=== PATIENT | female | born 1970 | race Caucasian/White ===

== ENCOUNTER → 2016-05-10 | Outpatient (CLI) | payer OTHER | LOC: FIMAGING 12:39 | PROVIDERS: ATTEND Allergy & Immunology Allergy | DX: R91.1 Solitary pulmonary nodule (principal) ==

== ENCOUNTER → 2016-05-11 | Outpatient (CLI) | payer OTHER | LOC: FIMAGING 13:42 | PROVIDERS: ATTEND Allergy & Immunology Allergy | DX: S22.31XA Fracture of one rib, right side, initial encounter for closed fracture (principal); J40 Bronchitis, not specified as acute or chronic; X58.XXXA Exposure to other specified factors, initial encounter ==

== ENCOUNTER → 2016-06-03 | Outpatient (CLI) | payer OTHER | LOC: GIMAGING 11:32 | PROVIDERS: ATTEND Nurse Practitioner Family | DX: J40 Bronchitis, not specified as acute or chronic (principal) | CPT/HCPCS: 71020-PO ==

== ENCOUNTER 2016-06-09 15:20 | Observation (INO) | payer OTHER ==
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
[2016-06-09 16:35] LABS: % IMMATURE GRANULYOCYTES 0.3 % (0.0-1.1); ABSOLUTE IMMATURE GRANULOCYTES 0.01 10^3/uL (0.00-0.10); ADD DIFF? NO; ADD MORPH? YES; ADD SCAN? NO; ATYPICAL LYMPHOCYTE FLAG 20 (0-99); HEMATOCRIT 23.4 % (38.0-47.0); LEFT SHIFT FLG 0 (0-99); LIPEMIA HEMOLYSIS FLAG 70 (0-99); MEAN CELL HEMOGLOBIN 14.9 pg (27.9-34.1); PLATELET CLUMPS FLAG 40 (0-99); PLATELET COUNT 373 10^3/uL (150-400); RED BLOOD CELL COUNT 4.22 10^6/uL (4.18-5.33)
[2016-06-09 16:38] LABS: FRAGMENT RBC FLAG 300 (0-99); HEMOGLOBIN 6.3 g/dL (12.6-16.3); MEAN CELL HEMOGLOBIN CONCENTR. 26.9 g/dL (32.4-36.7); MEAN CELL VOLUME 55.5 fL (81.5-99.8); RED CELL DISTRIBUTION WIDTH 20.5 % (11.5-15.2)
[2016-06-09 16:44] LABS: ANION GAP 11 mEq/L (8-16); CALCIUM 9.5 mg/dL (8.5-10.4); CARBON DIOXIDE 22 mEq/l (22-31); CHLORIDE 105 mEq/L (97-110); CREATININE 0.6 mg/dL (0.6-1.0); GLOMERULAR FILTRATION RATE > 60; GLUCOSE 95 mg/dL (70-100); POTASSIUM 4.2 mEq/L (3.5-5.2); SODIUM 138 mEq/L (134-144)
[2016-06-09 16:53] LABS: % SATURATION 4 % (20-55); TOTAL IRON BINDING CAPACITY 361 ug/dL (260-490)
[2016-06-09 16:58] LABS: TROPONIN I < 0.012 ng/mL (0-0.034)
[2016-06-09 17:07] LABS: HYPOCHROMIA 3+; MACROCYTES 1+; MICROCYTES 3+; PLATELET ESTIMATE ADEQUATE (ADEQ); POLYCHROMASIA 2+
[2016-06-09 17:08] LABS: ACANTHOCYTES 1+; ELLIPTOCYTES 1+; LARGE PLATELETS PRESENT; SCHISTOCYTES 2+
[2016-06-09] MEDS ORDERED: GOLYTELY 4000 ML BTL PO ONE (20:00)
[2016-06-09] MEDS ORDERED: ACETAMINOPHEN 325 MG TAB PO PRN (23:34)
[2016-06-09] MEDS ORDERED: ONDANSETRON DISINTEGRATING 4 MG TAB PO PRN (23:34)
[2016-06-09] MEDS ORDERED: ONDANSETRON 4 MG/2 ML VIAL IVP PRN (23:34)
--- NOTE | 2016-06-09 23:37 | PDGENHP ---
History and Physical - Chief Complaint sent to ED by PMD for anemia - History of Present Illness Patient is a 45-year-old female with no significant past medical history who was sent to the ED for abnormal lab values. For the past 8 months patient has undergone an extensive workup for a chronic, productive cough of unclear etiology. Patient reports undergoing PFTs, CT chest, an allergen testing. Workup has revealed possible her pulmonary hypertension. Patient states over the past 2 months she has been noticing increasing dyspnea on exertion with her regular exercise regimen, and more recently dyspnea with walking 1-2 flights of stairs. This is a change from her baseline. In addition to her respiratory symptoms, patient has also been experiencing bright red blood per rectum for the past several months. Bleeding was being attributed to external/internal hemorrhoids, however patient reports bright red blood as well as dark maroon clots being passed intermittently. She denies any melena. On 06/05 patient underwent outpatient blood work that revealed significant anemia, for which she was sent to the ED today. Of note, patient denies any obvious dizziness, lightheadedness, chest pain, palpitations. She also denies any fevers, chills, abdominal pain, nausea, vomiting or diarrhea. Her outpatient labs also revealed a positive [place] screening. Patient does report intermittent headaches, for which she takes Advil frequently. She has never had a colonoscopy or endoscopy in her life On to the ED patient was afebrile and hemodynamically stable. Labs revealed persistent anemia, hemoglobin 6.3. BMP was within normal limits. GI was consulted and patient was admitted to the hospital service for further management. History Information - Allergies/Home Medication List Allergies/Adverse Reactions: hydromorphone HCl [From Dilaudid] Allergy (Intermediate, Verified 06/09/16 15:34 ) SEVERE HEADACHE meperidine HCl [From Demerol] Allergy (Intermediate, Verified 06/09/16 15:34) SEVERE HEADACHE Penicillins Allergy (Mild, Verified 06/09/16 15:34) Rash Home Medications: Herbals/Supplements -Info Only 1 ea PO DAILY 06/09/16 [Last Taken Unknown] I have personally reviewed and updated: family history, medical history, social history, surgical history - Past Medical History no pertinent PMH - Surgical History Additional surgical history: Total abdominal hysterectomy. Myomectomy. Lasic eye surgery - Family History Positive for: CAD - Social History Smoking Status: Never smoked Alcohol Use: Occasionally Drug Use: None Additional social history: Patient works in the [employer] in history, lives alone. Review of Systems ROS: 10pt was reviewed & negative except for what was stated in HPI & below Physical Exam Temp Pulse Resp BP Pulse Ox 36.8 C 68 14 126/68 H 99 06/09/16 20:00 06/09/16 20:00 06/09/16 20:00 06/09/16 20:00 06/09/16 20:00 O2 (L/minute) 99 Constitutional: no apparent distress, appears nourished, not in pain Eyes: PERRL, anicteric sclera, EOMI, pale conjunctiva Ears, Nose, Mouth, Throat: moist mucous membranes, hearing normal, ears appear normal, no oral mucosal ulcers Cardiovascular: regular rate and rhythym, no murmur, rub, or gallop, pulses symmetric bilaterally, No JVD, No edema Peripheral Pulses: 2+: dorsalis-pedis (R), dorsalis-pedis (L) Respiratory: no respiratory distress, no rales or rhonchi, clear to auscultation Gastrointestinal: normoactive bowel sounds, soft, non-tender abdomen, no palpable masses, No tenderness, No hepatosplenomegally, No guarding, No rebound , No distension Genitourinary: no bladder fullness, no bladder tenderness Skin: warm, normal color, no rashes or abrasions, no fluctuance, no induration, No mottled Musculoskeletal: full muscle strength, no muscle tenderness, normal joint ROM, no joint effusions Neurologic: AAOx3, sensation intact bilaterally, CN II-XII Intact, No weakness, No numbness, No facial droop Psychiatric: interacting appropriately, not anxious, not encephalopathic, thought process linear Lab Data & Imaging Review 06/09/16 16:20 06/09/16 16:20 WBC 3.31 10^3/uL (3.80-9.50) L 06/09/16 16:20 RBC 4.22 10^6/uL (4.18-5.33) 06/09/16 16:20 Hgb 6.3 g/dL (12.6-16.3) L 06/09/16 16:20 Hct 23.4 % (38.0-47.0) L 06/09/16 16:20 MCV 55.5 fL (81.5-99.8) L 06/09/16 16:20 MCH 14.9 pg (27.9-34.1) L 06/09/16 16:20 MCHC 26.9 g/dL (32.4-36.7) L 06/09/16 16:20 RDW 20.5 % (11.5-15.2) H 06/09/16 16:20 Plt Count 373 10^3/uL (150-400) 06/09/16 16:20 MPV TNP 06/09/16 16:20 Neut % (Auto) 43.8 % (39.3-74.2) 06/09/16 16:20 Lymph % (Auto) 41.4 % (15.0-45.0) 06/09/16 16:20 [place] % (Auto) 11.8 % (4.5-13.0) 06/09/16 16:20 Eos % (Auto) 2.1 % (0.6-7.6) 06/09/16 16:20 Baso % (Auto) 0.6 % (0.3-1.7) 06/09/16 16:20 Nucleat RBC Rel Count 0.0 % (0.0-0.2) 06/09/16 16:20 Absolute Neuts (auto) 1.45 10^3/uL (1.70-6.50) L 06/09/16 16:20 Absolute Lymphs (auto) 1.37 10^3/uL (1.00-3.00) 06/09/16 16:20 Absolute Monos (auto) 0.39 10^3/uL (0.30-0.80) 06/09/16 16:20 Absolute Eos (auto) 0.07 10^3/uL (0.03-0.40) 06/09/16 16:20 Absolute Basos (auto) 0.02 10^3/uL (0.02-0.10) 06/09/16 16:20 Absolute Nucleated RBC 0.00 10^3/uL (0-0.01) 06/09/16 16:20 Immature Gran % 0.3 % (0.0-1.1) 06/09/16 16:20 Immature Gran # 0.01 10^3/uL (0.00-0.10) 06/09/16 16:20 Platelet Estimate ADEQUATE (ADEQ) 06/09/16 16:20 Large Platelets PRESENT H 06/09/16 16:20 Polychromasia 2+ H 06/09/16 16:20 Hypochromasia 3+ H 06/09/16 16:20 Microcytic Cells 3+ H 06/09/16 16:20 Oval Macrocytes 1+ H 06/09/16 16:20 Elliptocytes 1+ H 06/09/16 16:20 Acanthocytes (Spur) 1+ H 06/09/16 16:20 Schistocytes 2+ H 06/09/16 16:20 Absolute Retic 0.056 10^6/uL (0.050-0.117) 06/09/16 16:20 Percent Retic 1.33 % (0.98-2.67) 06/09/16 16:20 Corrected Retic Count 0.7 % (0.6-2.6) 06/09/16 16:20 Sodium 138 mEq/L (134-144) 06/09/16 16:20 Potassium 4.2 mEq/L (3.5-5.2) 06/09/16 16:20 Chloride 105 mEq/L (97-110) 06/09/16 16:20 Carbon Dioxide 22 mEq/l (22-31) 06/09/16 16:20 Anion Gap 11 mEq/L (8-16) 06/09/16 16:20 BUN 14 mg/dL (7-23) 06/09/16 16:20 Creatinine 0.6 mg/dL (0.6-1.0) 06/09/16 16:20 Estimated GFR > 60 06/09/16 16:20 Glucose 95 mg/dL (70-100) 06/09/16 16:20 Calcium 9.5 mg/dL (8.5-10.4) 06/09/16 16:20 Iron 16.0 mcg/dL (37-170) L 06/09/16 16:20 TIBC 361 ug/dL (260-490) 06/09/16 16:20 Iron Saturation 4 % (20-55) L 06/09/16 16:20 Troponin I < 0.012 ng/mL (0-0.034) 06/09/16 16:20 Stool Occult Bld Scrn POSITIVE (NEGATIVE) H 06/09/16 Unknown Patient ABO/Rh O POSITIVE 06/09/16 17:31 Antibody Screen NEGATIVE 06/09/16 17:31 Crossmatch IS Only See Detail 06/09/16 17:31 Assessment & Plan Assessment: Patient is a 45-year-old female with no significant past medical history who presents to the ED with abnormal outpatient labs significant for anemia. Patient reports a history concerning for lower GI bleeding. Plan: # acute blood loss anemia Microcytic anemia appears consistent with acute blood loss from lower GI tract ( internal hemorrhoids vs diverticula). Patient does report a significant NSAID use, however, presentation does not appear consistent with UGIB. She remains hemodynamically stable, not tachycardic. Will transfuse 1 unit PRBC now. GI has evaluated patient and plan for colonoscopy in AM. - NPO - colonoscopy prep - transfuse PRBC and trend CBC - f/u GI findings/recs # chronic cough, increasing dyspnea on exertion. Patient reports chronic cough for which she has undergone an extensive outpatient work up. Per the patient, the leading diagnosis appears to be pulmonary hypertension. Will check TTE to assess severity of this while patient is here, as it is likely contributing to her symptoms of generalized fatigue and dyspnea (in addition to the anemia). # dispo: admit to observation status for stable lower GI bleed w/u # gen: Full code
[2016-06-10 06:28] LABS: HEMATOCRIT 24.8 % (38.0-47.0)
[2016-06-10 08:23] LABS: % IMMATURE GRANULYOCYTES 0.4 % (0.0-1.1); ABSOLUTE IMMATURE GRANULOCYTES 0.01 10^3/uL (0.00-0.10); ADD DIFF? NO; ADD MORPH? YES; ADD SCAN? NO; ATYPICAL LYMPHOCYTE FLAG 20 (0-99); FRAGMENT RBC FLAG 80 (0-99); HEMATOCRIT 26.5 % (38.0-47.0); HEMOGLOBIN 7.4 g/dL (12.6-16.3); LEFT SHIFT FLG 0 (0-99); LIPEMIA HEMOLYSIS FLAG 70 (0-99); MEAN CELL HEMOGLOBIN 16.6 pg (27.9-34.1); MEAN PLATELET VOLUME 10.1 fL (8.7-11.7); PLATELET CLUMPS FLAG 50 (0-99); PLATELET COUNT 353 10^3/uL (150-400); RED BLOOD CELL COUNT 4.46 10^6/uL (4.18-5.33)
[2016-06-10 08:24] LABS: MEAN CELL HEMOGLOBIN CONCENTR. 27.9 g/dL (32.4-36.7); MEAN CELL VOLUME 59.4 fL (81.5-99.8); RED CELL DISTRIBUTION WIDTH 23.9 % (11.5-15.2)
[2016-06-10 08:35] LABS: APTT 29.3 SEC (23.0-38.0); INR 1.05 (0.83-1.16); PROTIME(PATIENT) 13.6 SEC (12.0-15.0)
[2016-06-10 08:44] VITALS: RESP 18
[2016-06-10 08:56] LABS: ALANINE AMINOTRANSFERASE 30 IU/L (9-52); ALBUMIN 4.3 g/dL (3.5-5.0); ALKALINE PHOSPHATASE 36 IU/L (38-126); ANION GAP 11 mEq/L (8-16); ASPARTATE AMINOTRANSFERASE 19 IU/L (14-46); BILIRUBIN,TOTAL 0.8 mg/dL (0.1-1.4); CALCIUM 9.5 mg/dL (8.5-10.4); CARBON DIOXIDE 21 mEq/l (22-31); CHLORIDE 108 mEq/L (97-110); CREATININE 0.6 mg/dL (0.6-1.0); GLOMERULAR FILTRATION RATE > 60; GLUCOSE 92 mg/dL (70-100); POTASSIUM 4.8 mEq/L (3.5-5.2); SODIUM 140 mEq/L (134-144); TOTAL PROTEIN 6.7 g/dL (6.3-8.2)
[2016-06-10 09:28] LABS: ELLIPTOCYTES 1+; HYPOCHROMIA 3+; MICROCYTES 3+; PLATELET ESTIMATE ADEQUATE (ADEQ)
[2016-06-10 09:29] LABS: SCHISTOCYTES 1+
[2016-06-10] MEDS ORDERED: fentaNYL 100 MCG/2 ML INJ ONE (09:29)
[2016-06-10] MEDS ORDERED: MIDAZOLAM 2 MG/2 ML VIAL ONE ×2 (09:29→10:26)
[2016-06-10] MEDS ORDERED: ONDANSETRON 4 MG/2 ML VIAL ONE (09:59)
--- NOTE | 2016-06-10 10:55 | SOAPPROG ---
DENI Progress Note Assessment/Plan: Assessment: Plan: 06/10/16 10:23 GI See dictated consult for details. S/p EGD and colonoscopy. No obvious cause seen. + internal and external hemorrhoids. Etiology? Hemorrhoidal versus small bowel versus other? Recommend to consider treatment for hemorrhoids and monitor H/H etc. Will restart diet. Objective: Vital Signs Temp Pulse Resp BP Pulse Ox 36.6 C 70 18 118/65 97 06/10/16 08:00 06/10/16 08:00 06/10/16 08:00 06/10/16 08:00 06/10/16 08:00 Laboratory Results 06/10/16 08:11 06/10/16 08:11 PT 13.6 SEC (12.0-15.0) 06/10/16 08:11 INR 1.05 (0.83-1.16) 06/10/16 08:11 ICD10 Worksheet Patient Problems: Problems Problem Status Onset Lower GI bleed Acute Anemia Acute Weakness Acute
--- NOTE | 2016-06-10 11:10 | ECHO ---
[id number] + + [address] : : [place] [address] : : [phone] + + Adult Echocardiographic Report + -------+ :Name: MICHELLE MISHRA JStudy Date: 06/10/2016 08:15 AM BP: 118/65 mmH g : : Hospital Admission Number: [id number] Locati on: 144: :: 1970 Gender: Female Height: 65 in : :Age: 45 yrs Race: WH Weight: 152 lb : :Reason For Study: incr DODD : : BSA: 1.8 meter s2 : :History: reported pulmonary hypertension : + -------+ MMode/2D Measurements \T\ Calculations IVSd: 1.1 cm RVDd: 2.7 cm FS: 29.8 % Ao root diam: LVPWd: 0.75 cm LVIDd: 3.7 cm EDV(Teich): 2.9 cm LVIDs: 2.6 cm 58.8 ml LA dimension: ESV(Teich): 3.0 cm 24.8 ml EF(Teich): 57.8 % LVLd ap4: 9.4 cm SV(MOD-sp4): EDV(MOD-sp4): 97.0 ml 124.0 ml LVLs ap4: 6.8 cm ESV(MOD-sp4): 27.0 ml EF(MOD-sp4): 78.2 % Normal Measurement Values: + + :LVIDd (3.5-5.7cm) IVSd (0.6-1.1cm) LVPWd (0.6-1.1cm) Aortic Root (2.0-3.7cm)Left Atrium (1.5-4.0cm): :LV Vol(d) (76-115ml) LV Vol(s) (29-48ml) Ejec Fraction (50-65%)PV Mikal (0.6- 1.2m/s) TV Mikal (0.4-1.0m/s) : :MV E Mikal (0.8-1.0m/s)MV A Mikal (0.3-1.0m/s)LVOT Mikal (0.7-1.2m/s) Asc Ao Mikal ( 0.9-1.8m/s) : + + Doppler Measurements \T\ Calculations MV E max mikal: Ao V2 max: LV V1 max: PA V2 max: 95.8 cm/sec 159.3 cm/sec 122.9 cm/sec 85.5 cm/sec MV A max mikal: Ao max PG: LV V1 max PG: PA max P.1 cm/sec 10.1 mmHg 6.0 mmHg 2.9 mmHg MV E/A: 1.3 MV dec time: 0.32 sec Left Ventricle The left ventricle is normal in size and function. There is normal left ventricular wall thickness. Mild proximal septal thickening without LVOT obstruction. Ejection Fraction = 65%. No regional wall motion abnormalities noted. Right Ventricle The right ventricle is normal in size and function. Atria The Left Atrial Volume is 38 ml/m2. The left atrium is mildly dilated. Right atrial size is normal. Mitral Valve The mitral valve leaflets appear thickened, but open well. There is mild mitral valve prolapse. There is no mitral valve stenosis. There is mild mitral regurgitation. Tricuspid Valve The tricuspid valve is normal in structure and function. There is no tricuspid stenosis. No tricuspid regurgitation. Unable to estimate right heart pressures due to inadequate TR jet. Aortic Valve The aortic valve is trileaflet. There is no aortic stenosis. Trace to mild aortic regurgitation. Pulmonic Valve The pulmonic valve is not well visualized. Great Vessels The aortic root is normal size. Pericardium/Pleural There is no pericardial effusion. Conclusion A two-dimensional transthoracic echocardiogram with M-mode and Doppler was performed. The left ventricle is normal in size and function. Ejection Fraction = 65%. The Left Atrial Volume is 38 ml/m2. The left atrium is mildly dilated. There is mild mitral valve prolapse. There is mild mitral regurgitation. Unable to estimate right heart pressures due to inadequate TR jet. Trace to mild aortic regurgitation. Final Reading Physician: Ancelmo Lee signed on 06/10/2016 11:09 AM Performed By: Lois Monae
--- NOTE | 2016-06-10 11:31 | GPN ---
[f rep st] PROCEDURE NOTE DATE OF PROCEDURE: 06/10/2016 PROCEDURE: Esophagogastroduodenoscopy with biopsy. INDICATION: Ansley is a 45-year-old female with significant NSAID use who presents for evaluation of iron-deficiency anemia. CONSENT: Risks, benefits, and alternatives of the procedure were discussed in great detail with the patient. Risks of infection, bleeding, perforation, and sedation were discussed. All questions answered. Informed consent was obtained. MEDICATIONS: Fentanyl 150mcg IV push, Versed 6 mg IV push. Zofran 8 mg IV push. . Moderate sedation was administered by the endoscopy nurse and supervised by the endoscopist. The following parameters were monitored: oxygen saturation, heart rate, blood pressure, and response to care. ESTIMATED BLOOD LOSS: Insignificant. ESOPHAGOGASTRODUODENOSCOPY EXAMINATION: The Olympus upper endoscope was introduced via the mouth and advanced to the esophagus. The proximal and mid esophagus were normal in appearance. An irregular Z-line was noted, and biopsies were taken. The stomach was entered and closely examined, including retroflexed view of the angularis, cardia and fundus. The patient was noted to have a small hiatal hernia. The mucosa in the antrum and body was erythematous in a patchy distribution and biopsies were taken. The duodenal bulb and second portion of the duodenum were normal in appearance. Biopsies were taken to rule out celiac sprue. IMPRESSION/RECOMMENDATIONS: 1. No cause of iron deficiency anemia seen. 2. Await biopsy results. 3. Proceed with colonoscopy. /[id number]/MODL MTDD
--- NOTE | 2016-06-10 11:36 | GPN ---
[f rep st] PROCEDURE NOTE DATE OF PROCEDURE: 06/10/2016 PROCEDURE: Colonoscopy. INDICATION: The patient is a 45-year-old female who presents for evaluation of iron-deficiency anemia as well as bright red blood per rectum. CONSENT: Risks, benefits, and alternatives of the procedure were discussed in great detail with the patient. Risks of infection, bleeding, perforation, and sedation were discussed. All questions answered and informed consent was obtained. MEDICATIONS: Fentanyl 175 mcg IV push, Versed 8 mg IV push, Zofran 8 mg IV push (these are total documented dosages for an EGD and colonoscopy). Moderate sedation was administered by the endoscopy nurse and supervised by the endoscopist. The following parameters were monitored: oxygen saturation, heart rate, blood pressure, and response to care. Total physician intraservice time was 46 minutes ESTIMATED BLOOD LOSS: None. COLONOSCOPIC EVALUATION: A rectal exam was done and the patient noted to have both internal and external hemorrhoids. The scope was introduced into the rectum and advanced to the cecum where the ileocecal valve and appendiceal orifice were seen. The small bowel was intubated. No blood was seen throughout the exam. The quality of prep was good. The colonic mucosa was carefully examined on both insertion and withdrawal of the scope. No mass, lesion, polyps or blood were noted throughout the colon. Retroflexion was performed and medium sized internal hemorrhoids were noted. IMPRESSION/RECOMMENDATIONS: 1. Suspected bright red blood per rectum is hemorrhoidal. 2. Rare for hemorrhoidal bleed causing this anemia, but she does have blood in her stools on an almost daily basis. Would recommend treatment of her hemorrhoids and monitor an H and H. If no increase in hemoglobin, would consider capsule endoscopy. Will need outpatient followup for her iron deficiency anemia. 3. Continue previous medications. 4. Ok to restart diet. 5. Needs iron supplementation. /[id number]/MODL MTDD
[2016-06-10 12:02] VITALS: TEMP 98.3
[2016-06-10] MEDS ORDERED: SODIUM FERRIC GLUCONAT/SUCROSE 125 MG in NS 100 ML IV ONE (12:29)
--- NOTE | 2016-06-10 13:00 | GCON ---
[f rep st] CONSULTATION DATE OF CONSULTATION: 06/10/2016 CONSULTING PHYSICIAN: Sabiha Duran MD. REASON FOR CONSULTATION: Iron deficiency anemia. CHIEF COMPLAINT: Shortness of breath, bright red blood per rectum. HISTORY OF PRESENT ILLNESS: Ansley is a 45-year-old female with a history of significant NSAID use, chronic cough who presents to [facility] with increasing shortness of breath. In the emergency room, she was found to have a hemoglobin level of 6.3. For approximately the last 8 months, the patient has had a productive cough of unknown etiology. She has undergone a significant workup, including CT scans, pulmonary function tests as well as allergy testing. Over the last several weeks, she has had increasing dyspnea, especially on exercise. The patient has had significant bright red blood per rectum for the last 4-5 months. The patient has had intermittent bright red blood per rectum on wiping as well as in the stool. This occurs intermittently but has occurred up to a week at one time. She denies any change in her bowel habits or significant abdominal pain. She denies any exacerbating or alleviating factors. The patient does take nonsteroidal anti-inflammatories on an almost daily basis. She takes approximately 2 Advil for her headaches as well as Tylenol PM for sleep. She has never had a prior upper endoscopy or colonoscopy. She denies a family history of colon cancer. I am being asked by Dr. Duran to see Ansley in consultation regarding her iron deficiency anemia. PAST MEDICAL HISTORY: Unremarkable. PAST SURGICAL HISTORY: Hysterectomy and LASIK eye surgery. MEDICATIONS: Herbal medications. ALLERGIES: Hydromorphone, meperidine, penicillin. SOCIAL HISTORY: No significant tobacco use. Positive alcohol. FAMILY HISTORY: No history of colon cancer. REVIEW OF SYSTEMS: A 12-point comprehensive review of systems was asked. Her pertinent positives and negatives as per HPI. PHYSICAL EXAM: VITAL SIGNS: Blood pressure 118/65, pulse is 70, respiration 18 , temperature 36.8. GENERAL: Awake, alert, and oriented x3. HEENT: Anicteric. Moist mucosa. NECK: No JVD. CARDIOVASCULAR: Regular rate and rhythm. Positive S1, S2. No murmurs or gallops appreciated. LUNGS: Clear to auscultation bilaterally, without wheezes, rales, or rhonchi. ABDOMEN: Soft, nontender, nondistended. Positive bowel sounds. No guarding. No rebound. EXTREMITIES: No clubbing, cyanosis or edema. NEUROLOGIC: 2 through 12 grossly intact. PSYCH: Normal affect. MUSCULOSKELETAL: No joint effusions or abnormalities. SKIN: No rash. LABORATORY DATA: Blood work: WBC is 2.55, hemoglobin 7.4, hematocrit 26.5, platelets 353. INR 1.05. Sodium 140, potassium 4.8, chloride 108, bicarb 21, BUN 10, creatinine 0.6, AST 19, ALT 63, alk phos 336. ASSESSMENT AND PLAN: Iron-deficiency anemia -- bright red blood per rectum. Significant anemia which we usually do not see in just hemorrhoidal bleed. Has heavy NSAID use. Would recommend proceeding with upper endoscopy and colonoscopy to delineate cause of her symptoms. The risks, benefits, and alternatives of the procedure were described in great detail to the patient. The risk of infection, bleeding, perforation, and sedation were discussed. All questions answered. Informed consent obtained. Would recommend to hold her nonsteroidal anti-inflammatory prior to this time. Thank you very much for this consultation! /[id number]/MODL MTDD
[2016-06-10 14:42] VITALS: BP 98/57; PULSE 72; O2SAT 95
--- NOTE | 2016-06-10 14:43 | HOSPPROG ---
Hospitalist Progress Note Assessment/Plan: 45 yo F w iron deficiency anemia no source found on endoscopy IV iron see dc summary Subjective: scope w no source of bleeding other than internal/external hemorrhoids Objective: Vital Signs Temp Pulse Resp BP Pulse Ox 36.8 C 69 18 117/55 L 97 06/10/16 11:45 06/10/16 11:45 06/10/16 11:45 06/10/16 11:45 06/10/16 11:45 Laboratory Results 06/10/16 08:11 06/10/16 08:11 PT 13.6 SEC (12.0-15.0) 06/10/16 08:11 INR 1.05 (0.83-1.16) 06/10/16 08:11 - Physical Exam Constitutional: no apparent distress, appears nourished, not in pain Eyes: PERRL, anicteric sclera Ears, Nose, Mouth, Throat: moist mucous membranes, hearing normal, ears appear normal Cardiovascular: regular rate and rhythym, no murmur, rub, or gallop Respiratory: no respiratory distress, no rales or rhonchi Gastrointestinal: normoactive bowel sounds, soft, non-tender abdomen Genitourinary: No junior in urethra Skin: warm, normal color Musculoskeletal: full muscle strength, no muscle tenderness Neurologic: AAOx3 Psychiatric: interacting appropriately ICD10 Worksheet Patient Problems: Problems Problem Status Onset Anemia Acute Lower GI bleed Acute Weakness Acute
--- NOTE | 2016-06-10 15:17 | GDS ---
[f rep st] DISCHARGE SUMMARY DISCHARGE DIAGNOSES: 1. Symptomatic iron deficiency anemia. 2. External hemorrhoids. CONSULTS: GI. PROCEDURES: 1. Upper endoscopy showing no evidence, no source of blood loss. 2. Colonoscopy showing medium-sized internal hemorrhoids. The patient had no signs of active bleeding here. She had 1 unit of packed red cells. Her hemoglobin went from 6.3 to 7.4. She received a dose of IV iron. The patient enjoys red meat and was instructed to eat lean red meat on a regular basis. She was als o instructed to start fiber in the form of Metamucil for her hemorrhoids. She was instructed to follow up with the primary care physician in about 3 weeks and repeat a CBC, a nd if her iron is not improving, then capsule endoscopy would be reasonable. DISCHARGE PRESCRIPTIONS: None. /[id number]/MODL
== END 2016-06-10 18:40 | disposition home or self-care (01) ==
LOC: F1N 18:42
PROVIDERS: ADMIT Internal Medicine; ATTEND Internal Medicine
PROC: 30233N1 Transfusion of Nonautologous Red Blood Cells into Peripheral Vein, Percutaneous Approach (ICD-10-PCS; principal; 2016-06-09)
PROC: 0DJD8ZZ Inspection of Lower Intestinal Tract, Via Natural or Artificial Opening Endoscopic (ICD-10-PCS; 2016-06-09)
PROC: 0DB38ZX Excision of Lower Esophagus, Via Natural or Artificial Opening Endoscopic, Diagnostic (ICD-10-PCS; 2016-06-09)
PROC: 0DB68ZX Excision of Stomach, Via Natural or Artificial Opening Endoscopic, Diagnostic (ICD-10-PCS; 2016-06-09)
PROC: 0DB98ZX Excision of Duodenum, Via Natural or Artificial Opening Endoscopic, Diagnostic (ICD-10-PCS; 2016-06-09)
DX: D50.9 Iron deficiency anemia, unspecified (principal); K64.8 Other hemorrhoids; R05 Cough; K22.9 Disease of esophagus, unspecified; K44.9 Diaphragmatic hernia without obstruction or gangrene; Z79.1 Long term (current) use of non-steroidal anti-inflammatories (NSAID)
CPT/HCPCS: 43239; 45378; 93306; G0378; P9016; 83010-90; J2250; J2405; J2916; J3010

== ENCOUNTER 2016-09-11 13:12 | Day surgery (SDC) | payer OTHER ==
[2016-09-11 13:59] VITALS: PULSE 57
[2016-09-11] MEDS ORDERED: LR 1,000 ML IV ONE (14:03)
[2016-09-11] MEDS ORDERED: MIDAZOLAM 2 MG/2 ML VIAL IVP ONE (15:03)
[2016-09-11] MEDS ORDERED: MIDAZOLAM 2 MG/2 ML VIAL ONE (15:03)
[2016-09-11] MEDS ORDERED: NALOXONE HCL 0.4 MG/ML INJ IVP PRN (15:05)
[2016-09-11] MEDS ORDERED: PROMETHAZINE HCL 25 MG/ML INJ IVP PRN (15:05)
[2016-09-11] MEDS ORDERED: ONDANSETRON 4 MG/2 ML VIAL IVP PRN (15:05)
--- NOTE | 2016-09-11 15:05 | PDANEPAE ---
ANE Past Medical History - Cardiovascular History Hx Hypertension: No Hx Arrhythmias: No Hx Chest Pain: No Hx Coronary Artery / Peripheral Vascular Disease: No Hx CHF / Valvular Disease: No Hx Palpitations: No - Pulmonary History Hx COPD: No Hx Asthma/Reactive Airway Disease: No Hx Recent Upper Respiratory Infection: No Hx Oxygen in Use at Home: No - Neurologic History Hx Cerebrovascular Accident: No Hx Seizures: No Hx Dementia: No - Endocrine History Hx Diabetes: No - Renal History Hx Renal Disorders: No - Liver History Hx Hepatic Disorders: No - Neurological & Psychiatric Hx Hx Neurological and Psychiatric Disorders: No - Cancer History Hx Cancer: No - Congenital Disorder History Hx Congenital Disorders: No - GI History Hx Gastrointestinal Disorders: Yes - Chronic Pain History Chronic Pain: No ANE Review of Systems - Exercise capacity METS (RN): 4 METS - Systems Cardiac: Reports: other (Asymptomatic MV prolapse) Gastrointestinal: Reports: other (GERD, Barretts esophagus) ANE Patient History - Allergies Allergies/Adverse Reactions: hydromorphone HCl [From Dilaudid] Allergy (Intermediate, Verified 06/09/16 15:34 ) SEVERE HEADACHE meperidine HCl [From Demerol] Allergy (Intermediate, Verified 06/09/16 15:34) SEVERE HEADACHE Penicillins Allergy (Mild, Verified 06/09/16 15:34) Rash - Home Medications Home Medications: Iron 09/08/16 [Last Taken 09/08/16 07:00] Magnesium 09/08/16 [Last Taken 09/08/16 07:00] Multi-Day Vitamins 09/08/16 [Last Taken 09/08/16 07:00] Omeprazole 09/08/16 [Last Taken 09/11/16 07:00] Vitamin D3 09/08/16 [Last Taken 09/08/16 07:00] - NPO status NPO Since - Liquids (Date): 09/11/16 NPO Since - Liquids (Time): 07:00 NPO Since - Solids (Date): 09/10/16 NPO Since - Solids (Time): 19:30 - Smoking Hx Smoking Status: Never smoked - Family Anes Hx Family Hx Anesthesia Complications: none ANE Labs/Vital Signs - Vital Signs Blood Pressure: 138/85 Heart Rate: 57 Respiratory Rate: 16 O2 Sat (%): 96 Height: 167.64 cm Weight: 68.039 kg ANE Physical Exam - Airway Mallampati Score: Class 1 Mouth exam: normal dental/mouth exam - Pulmonary Pulmonary: no respiratory distress, no rales or rhonchi, clear to auscultation - Cardiovascular Cardiovascular: regular rate and rhythym - ASA Status ASA Status: II ANE Anesthesia Plan Anesthesia Plan: MAC
[2016-09-11] MEDS ORDERED: PROPOFOL 200 MG/20 ML VIAL ONE (15:08)
--- NOTE | 2016-09-11 15:12 | PDGENHP ---
History & Physical Chief Complaint: Barretts esophagus History of Present Illness: 45 year old female with a history of GERD presents had HGD on last EGD. Pertinent Past, Social, Family History: SoHx: + alc. No cigs. FaMHx: No esophageal cancer. PMHx: MVP Relevant Physical Exam: HEENT: anicteric sclera. CV:RRR + s1s2. No m/r/g. Lungs: CTAB No w/r/r. Abd: soft, nt, + bs. No g/r/. Ext: No c/c/e Cardiorespiratory Assessment: asa 2
[2016-09-11] MEDS ORDERED: NS 500 ML IV SCH (15:15)
--- NOTE | 2016-09-11 15:31 | POSTOPPROG ---
Post Op Note Date of Operation: 09/11/16 Surgeon: Corey Barreto Anesthesia: IV Sedation Pre-op Diagnosis: barretts Post-op Diagnosis: irreg z line Indication: barretts Procedure: egd with bx Findings: irreg z Inf/Abcess present in the surg proc area at time of surgery?: No
[2016-09-11 15:47] VITALS: RESP 20
--- NOTE | 2016-09-11 16:02 | POSTANESTH ---
Post Anesthetic Evaluation Cardiovascular Status: Normal, Stable, Similar to Pre-Op Cond Respiratory Status: Normal, Stable, Similar to Pre-op Cond. Level of Consciousness/Mental Status: Can Participate in Eval, Mildly Sleepy, Arousable Pain Control: Adequate, Prn Tx Ordered Nausea/Vomiting Control: Adequate, Prn Tx Ordered Complications Possibly Related to Anesthesia: None Noted
[2016-09-11] MEDS ORDERED: ACETAMINOPHEN 500 MG TAB PO PRN (16:06)
[2016-09-11] MEDS ORDERED: ACETAMINOPHEN 500 MG TAB ONE (16:07)
[2016-09-11 16:10] VITALS: TEMP 98.1
[2016-09-11 16:20] VITALS: BP 134/92; O2SAT 98
--- NOTE | 2016-09-12 00:50 | GPN ---
[f rep st] PROCEDURE NOTE DATE OF PROCEDURE: 09/11/2016 PROCEDURE: Esophagogastroduodenoscopy with biopsy. INDICATION: Ansley is a 45-year-old female who presents for surveillance of Enriquez's esophagus with high grade dysplasia. CONSENT: Risks, benefits, and alternatives of the procedure were discussed in great detail with the patient. Risk of infection, bleeding, perforation, and sedation were discussed. All questions answered. Informed consent was obtained. MEDICATIONS: Propofol. Please see Anesthesiology record for details. ESTIMATED BLOOD LOSS: Insignificant. ESOPHAGOGASTRODUODENOSCOPY EXAMINATION: The Olympus upper endoscope was inserted into the mouth and advanced to esophagus. The proximal and mid esophagus were normal in appearance. At the distal esophageal junction, it was noted to be mildly nodular. Multiple biopsies were taken. The stomach was entered and closely examined, including retroflexed views of the angularis, cardia, and fundus. The patient was noted to have a hiatal hernia. The duodenal bulb was entered and duodenum was normal in appearance. IMPRESSION: 1. Irregular Z-line, status post biopsy. 2. Hiatal hernia. RECOMMENDATION: 1. Follow up on biopsy results. 2. Repeat EGD dependent upon pathology results. 3. Continue previous medications. 4. Advance diet. /[id number]/MODL MTDD
== END 2016-09-11 17:00 | disposition home or self-care (01) ==
LOC: FSGY 13:12
PROVIDERS: ATTEND Internal Medicine Gastroenterology
PROC: 0DB48ZX Excision of Esophagogastric Junction, Via Natural or Artificial Opening Endoscopic, Diagnostic (ICD-10-PCS; principal; 2016-09-11 15:00)
DX: K22.70 Barrett's esophagus without dysplasia (principal); K21.9 Gastro-esophageal reflux disease without esophagitis
CPT/HCPCS: J2250; J2704

== ENCOUNTER → 2018-03-21 | Outpatient (CLI) | payer OTHER | LOC: FIMAGING 11:56 | PROVIDERS: ATTEND Family Medicine | DX: Z12.31 Encounter for screening mammogram for malignant neoplasm of breast (principal) ==